=== PATIENT | male | born 1975 | race African-American/Black ===

== ENCOUNTER 2024-04-16 21:47 | Inpatient (IN) | payer OTHER ==
[2024-04-17 00:02] VITALS: BMI 30.5
[2024-04-17] MEDS: diphenhydrAMINE 50 MG/ML VIAL IVP SCH (00:19)
[2024-04-17] MEDS: HYDROcodone/Acetaminophen 10/325 mg Tablet PO SCH (00:19)
[2024-04-17] MEDS ORDERED: Albuterol 200 PUFF (6.7GM INHALER) INH PRN (00:35)
[2024-04-17] MEDS ORDERED: Ondansetron PF 4 MG/2 ML Vial IVP PRN (00:37)
[2024-04-17] MEDS ORDERED: Morphine 2 MG/ML VIAL SLOW IVP PRN (00:46)
[2024-04-17] MEDS: Lactated Ringer's 1,000 ML IV SCH (01:06)
[2024-04-17] MEDS: Morphine 4 MG/ML VIAL SLOW IVP PRN ×2 (01:22→14:55)
[2024-04-17] MEDS: Acetaminophen/Codeine 30-300mg Tablet PO PRN (02:57)
[2024-04-17 04:23] LABS: Hematocrit 17.8 % (42.0-52.0); Hemoglobin 6.2 g/dL (14.0-18.0); Mean Corpuscular HGB CONC 34.8 g/dL (32.0-36.0); Mean Corpuscular Hemoglobin 37.6 pg (27.0-31.0); Mean Corpuscular Volume 107.9 fL (78.0-98.0); Platelet Count 225 10x3/uL (130-400); RBC Distribution Width 28.6 % (11.5-14.5); Red Blood Cell (RBC) Count 1.65 mill/uL (4.70-6.10)
[2024-04-17 04:28] LABS: Anion Gap 11 mmol/L (10-20); BUN (Urea Nitrogen) 15 mg/dL (8.9-20.6); Calc. Creatinine Clearance 133 mL/min (70-130); Calcium 8.5 mg/dL (7.8-10.44); Carbon Dioxide 24 mmol/L (22-29); Chloride 104 mmol/L (98-107); Estimated GFR 82; Glucose 111 mg/dL (70-105); Potassium 3.9 mmol/L (3.5-5.1); Sodium 135 mmol/L (136-145)
[2024-04-17 05:08] LABS: Anisocytosis SLIGHT = 6-15 cells HPF (0-5); Band 1 % (5-11); Hypochromia SLIGHT = 6-15 cells HPF (0-5); Lymphocytes 23 % (21-51); Macrocytosis SLIGHT = 6-15 cells HPF (0-5); Monocytes 1 % (0-10); Neutrophil 75 % (42-75); Nucleated RBC (Manual Ct) 23 % (0); Platelet Adequacy Comment Platelets Normal; Polychromasia MODERATE = 3-4 cells HPF (0-2); Target Cells SLIGHT = 2-5 cells HPF (0-1)
[2024-04-17] MEDS: diphenhydrAMINE 25 MG CAP PO PRN (05:48)
[2024-04-17 07:55] LABS: Bacteria/HPF None Seen HPF (None Seen); Bilirubin Negative (Negative); Blood, Urine Negative (Negative); Clarity Clear (Clear); Glucose, Urine (Dipstick) Normal (Negative); Ketone, Urine Negative (Negative); Leukocyte Negative Leu/uL (Negative); Nitrite Negative (Negative); Protein, Urine (Dipstick) 10 mg/dL (Neg-Trace); RBC/HPF None Seen HPF (0-3); Specific Gravity, Urine 1.005 (1.002-1.036); Squamous Epithelial 0-3 HPF (0-3); Urobilinogen Normal mg/dL (Less than 2); WBC/HPF None Seen HPF (0-3); pH, Urine 6.5 (5.0-9.0)
[2024-04-17] MEDS: Lisinopril 10 MG TAB PO SCH (08:53)
[2024-04-17] MEDS: Loratadine 10 MG TAB PO SCH (08:53)
[2024-04-17] MEDS: Pantoprazole DR 40 MG TAB PO SCH (08:53)
[2024-04-17] MEDS: Amlodipine 10 MG TAB PO SCH (08:54)
[2024-04-17] MEDS: Morphine ER 15 MG TAB PO SCH (08:54)
[2024-04-17] MEDS: Allopurinol 300 MG TAB PO SCH (08:54)
[2024-04-17] MEDS: Lactulose 20 GM (30 mL) UDCUP PO SCH (08:56)
[2024-04-17 10:34] LABS: Hemoglobin 7.5 g/dL (14.0-18.0)
[2024-04-17] MEDS: Hydroxyurea 500 MG CAP PO SCH (10:38)
[2024-04-17] MEDS: Morphine 4 MG/ML VIAL SLOW IVP SCH (11:34)
[2024-04-17] MEDS: Terazosin HCl 5 MG CAP PO SCH (20:46)
[2024-04-17] MEDS: Venlafaxine HCl XR 150 MG CAP PO SCH (20:46)
[2024-04-17] MEDS: Atorvastatin Calcium 40 MG TAB PO SCH (20:47)
[2024-04-18 04:11] LABS: Hematocrit 20.7 % (42.0-52.0); Hemoglobin 7.2 g/dL (14.0-18.0); Mean Corpuscular HGB CONC 34.8 g/dL (32.0-36.0); Mean Corpuscular Hemoglobin 36.2 pg (27.0-31.0); Mean Platelet Volume 10.5 fL (7.4-10.4); Platelet Count 237 10x3/uL (130-400); RBC Distribution Width 27.5 % (11.5-14.5); Red Blood Cell (RBC) Count 1.99 mill/uL (4.70-6.10)
[2024-04-18 04:21] LABS: Anion Gap 8 mmol/L (10-20); BUN (Urea Nitrogen) 14 mg/dL (8.9-20.6); Calc. Creatinine Clearance 149 mL/min (70-130); Calcium 9.1 mg/dL (7.8-10.44); Carbon Dioxide 30 mmol/L (22-29); Chloride 102 mmol/L (98-107); Estimated GFR 94; Glucose 86 mg/dL (70-105); Potassium 3.9 mmol/L (3.5-5.1); Sodium 136 mmol/L (136-145)
[2024-04-18 04:37] LABS: Anisocytosis SLIGHT = 6-15 cells HPF (0-5); Elliptocytes SLIGHT = 2-5 cells HPF (0-1); Hypochromia SLIGHT = 6-15 cells HPF (0-5); Large Platelets 48.5 % (0-5); Lymphocytes 48 % (21-51); Macrocytosis SLIGHT = 6-15 cells HPF (0-5); Monocytes 4 % (0-10); Neutrophil 49 % (42-75); Nucleated RBC (Manual Ct) 57 % (0); Platelet Adequacy Comment Platelets Normal; Polychromasia SLIGHT = 2-3 cells HPF (0-2); Target Cells SLIGHT = 2-5 cells HPF (0-1)
[2024-04-18] MEDS: Morphine ER 15 MG TAB PO SCH (20:02)
[2024-04-18] MEDS: diphenhydrAMINE 50 MG/ML VIAL IVP PRN (22:15)
[2024-04-19] MEDS: Acetaminophen 325 MG TAB PO PRN (04:27)
[2024-04-19 08:48] LABS: RBC Distribution Width 27.9 % (11.5-14.5)
[2024-04-19 08:48] LABS: Anion Gap 16 mmol/L (10-20); BUN (Urea Nitrogen) 14 mg/dL (8.9-20.6); Calc. Creatinine Clearance 163 mL/min (70-130); Calcium 8.9 mg/dL (7.8-10.44); Carbon Dioxide 24 mmol/L (22-29); Chloride 105 mmol/L (98-107); Estimated GFR 105; Glucose 112 mg/dL (70-105); Potassium 3.8 mmol/L (3.5-5.1); Sodium 141 mmol/L (136-145)
[2024-04-19 09:40] LABS: Anisocytosis MARKED = >30 cells HPF (0-5); Band 1 % (5-11); Eosinophils 1 % (0-10); Giant Platelets 2.5 % (0-5); Howell Jolly Bodies SLIGHT = 1-2 cells HPF (None Seen); Large Platelets 54.2 % (0-5); Lymphocytes 48 % (21-51); Monocytes 3 % (0-10); Neutrophil 43 % (42-75); Nucleated RBC (Manual Ct) 70 % (0); Platelet Adequacy Comment Platelets Normal; Polychromasia MARKED = >4 cells HPF (0-2); Smudge Cells 11.9 %; Target Cells SLIGHT = 2-5 cells HPF (0-1)
[2024-04-19 09:49] LABS: Hematocrit 24.8 % (42.0-52.0); Hemoglobin 9.1 g/dL (14.0-18.0); Mean Corpuscular HGB CONC 36.7 g/dL (32.0-36.0); Mean Corpuscular Hemoglobin 35.8 pg (27.0-31.0); Mean Corpuscular Volume 97.6 fL (78.0-98.0); Mean Platelet Volume 11.6 fL (7.4-10.4); Platelet Count 178 10x3/uL (130-400); Red Blood Cell (RBC) Count 2.54 mill/uL (4.70-6.10)
[2024-04-20 06:22] LABS: Anion Gap 10 mmol/L (10-20); BUN (Urea Nitrogen) 15 mg/dL (8.9-20.6); Calc. Creatinine Clearance 150 mL/min (70-130); Calcium 9.5 mg/dL (7.8-10.44); Carbon Dioxide 28 mmol/L (22-29); Chloride 104 mmol/L (98-107); Estimated GFR 95; Glucose 92 mg/dL (70-105); Potassium 4.2 mmol/L (3.5-5.1); Sodium 138 mmol/L (136-145)
[2024-04-20 06:44] LABS: Hematocrit 26.9 % (42.0-52.0); Hemoglobin 9.2 g/dL (14.0-18.0); Mean Corpuscular HGB CONC 34.2 g/dL (32.0-36.0); Mean Corpuscular Hemoglobin 35.9 pg (27.0-31.0); Mean Corpuscular Volume 105.1 fL (78.0-98.0); Mean Platelet Volume 10.7 fL (7.4-10.4); Platelet Count 246 10x3/uL (130-400); RBC Distribution Width 27.7 % (11.5-14.5); Red Blood Cell (RBC) Count 2.56 mill/uL (4.70-6.10)
[2024-04-20 08:04] LABS: Anisocytosis MODERATE=16-30 cells HPF (0-5); Giant Platelets 4.9 % (0-5); Howell Jolly Bodies SLIGHT = 1-2 cells HPF (None Seen); Hypersegmented Neutrophil SLIGHT (None Seen); Large Platelets 8.9 % (0-5); Lymphocytes 40 % (21-51); Macrocytosis SLIGHT = 6-15 cells HPF (0-5); Monocytes 1 % (0-10); Neutrophil 55 % (42-75); Nucleated RBC (Manual Ct) 55 % (0); Platelet Adequacy Comment Platelets Normal; Polychromasia SLIGHT = 2-3 cells HPF (0-2); Schistocytes SLIGHT = 2-5 cells HPF (0-1); Target Cells SLIGHT = 2-5 cells HPF (0-1)
[2024-04-20 16:34] VITALS: BP 136/75; TEMP 98.4
== END 2024-04-20 19:24 | DRG 812 ==
LOC: T4-B 23:40 → OBSVTOIN 04-17 00:37 → EEVIPCON 04-17 00:37
PROVIDERS: ADMIT Student in an Organized Health Care Education/Training Program; ATTEND Internal Medicine
PROC: 30233N1 Transfusion of Nonautologous Red Blood Cells into Peripheral Vein, Percutaneous Approach (ICD-10-PCS; principal; 2024-04-17)
DX: D57.00 Hb-SS disease with crisis, unspecified (principal); J45.909 Unspecified asthma, uncomplicated; E66.01 Morbid (severe) obesity due to excess calories; Z88.8 Allergy status to other drugs, medicaments and biological substances; Z79.899 Other long term (current) drug therapy; Z68.30 Body mass index [BMI] 30.0-30.9, adult; I12.9 Hypertensive chronic kidney disease with stage 1 through stage 4 chronic kidney disease, or unspecified chronic kidney disease; N18.9 Chronic kidney disease, unspecified; M10.9 Gout, unspecified
CPT/HCPCS: 36415; 36416; 36430; 71046; 80048; 80053; 81001; 85025; 85046; 85060; 86850; 86900; 86901; 94760; 96374; 96375; 96376; J1170; J1200; J1642; J2270; J7120; P9016

== ENCOUNTER 2024-08-23 18:37 | Inpatient (IN) | payer OTHER ==
[2024-08-23 20:44] VITALS: BMI 29.7
[2024-08-23] MEDS ORDERED: Sodium Chloride 0.9% 1,000 ML IV SCH ×2 (21:00)
[2024-08-23] MEDS: Lactated Ringer's 1,000 ML IV SCH ×2 (21:11→21:54)
[2024-08-23] MEDS ORDERED: Morphine 2 MG/ML VIAL SLOW IVP PRN (21:32)
[2024-08-23] MEDS ORDERED: Morphine 4 MG/ML VIAL SLOW IVP PRN (21:32)
[2024-08-23] MEDS ORDERED: Ipratropium/Albuterol 3 ML NEB NEB PRN (21:33)
[2024-08-23] MEDS ORDERED: Ondansetron PF 4 MG/2 ML Vial IVP PRN (21:36)
[2024-08-23] MEDS: Morphine 2 MG/ML VIAL SLOW IVP PRN (21:50)
[2024-08-23] MEDS: diphenhydrAMINE 25 MG CAP PO SCH (21:50)
[2024-08-24] MEDS: Morphine 4 MG/ML VIAL SLOW IVP PRN (00:39)
[2024-08-24 04:32] LABS: Hematocrit 27.7 % (42.0-52.0); Hemoglobin 10.2 g/dL (14.0-18.0); Mean Corpuscular HGB CONC 36.8 g/dL (32.0-36.0); Mean Corpuscular Volume 111.2 fL (78.0-98.0); Mean Platelet Volume 10.8 fL (7.4-10.4); Platelet Count 271 10x3/uL (130-400); RBC Distribution Width 18.4 % (11.5-14.5); Red Blood Cell (RBC) Count 2.49 mill/uL (4.70-6.10)
[2024-08-24 04:39] LABS: Anion Gap 10 mmol/L (10-20); BUN (Urea Nitrogen) 15 mg/dL (8.9-20.6); Calc. Creatinine Clearance 128 mL/min (70-130); Calcium 8.7 mg/dL (7.8-10.44); Carbon Dioxide 26 mmol/L (22-29); Chloride 107 mmol/L (98-107); Estimated GFR 82; Glucose 92 mg/dL (70-105); Potassium 4.4 mmol/L (3.5-5.1); Sodium 139 mmol/L (136-145)
[2024-08-24 05:52] LABS: Anisocytosis MODERATE=16-30 cells HPF (0-5); Band 3 % (5-11); Eosinophils 11 % (0-10); Large Platelets 24.3 % (0-5); Lymphocytes 35 % (21-51); Macrocytosis SLIGHT = 6-15 cells HPF (0-5); Monocytes 5 % (0-10); Neutrophil 46 % (42-75); Nucleated RBC (Manual Ct) 22 % (0); Ovalocytes SLIGHT = 2-5 cells HPF (0-1); Platelet Adequacy Comment Platelets Normal; Polychromasia SLIGHT = 2-3 cells HPF (0-2); Smudge Cells 13.5 %; Target Cells SLIGHT = 2-5 cells HPF (0-1)
[2024-08-24] MEDS: Hydroxyurea 500 MG CAP PO SCH (08:15)
[2024-08-24] MEDS: Amlodipine 10 MG TAB PO SCH (08:15)
[2024-08-24] MEDS: Allopurinol 300 MG TAB PO SCH (08:15)
[2024-08-24] MEDS: Morphine ER 15 MG TAB PO SCH ×2 (11:38→20:20)
[2024-08-24 11:46] VITALS: BMI 29.7
[2024-08-24] MEDS: HYDROmorphone 0.5 MG/0.5 ML SYRINGE SLOW IVP SCH ×2 (14:21→17:29)
[2024-08-24] MEDS: Rivaroxaban 10 MG TAB PO SCH (20:20)
[2024-08-24] MEDS: Venlafaxine HCl XR 150 MG CAP PO SCH (20:20)
[2024-08-24] MEDS: Terazosin HCl 1 MG CAP PO SCH (20:20)
[2024-08-24] MEDS: Atorvastatin Calcium 40 MG TAB PO SCH (20:20)
[2024-08-24] MEDS ORDERED: Morphine ER 15 MG TAB PO SCH (21:00)
[2024-08-24] MEDS: HYDROmorphone 0.5 MG/0.5 ML SYRINGE SLOW IVP PRN (22:39)
[2024-08-25] MEDS: diphenhydrAMINE 25 MG CAP PO SCH (01:40)
[2024-08-25 04:46] LABS: Hematocrit 26.7 % (42.0-52.0); Hemoglobin 9.7 g/dL (14.0-18.0); Mean Corpuscular HGB CONC 36.3 g/dL (32.0-36.0); Mean Corpuscular Hemoglobin 42.4 pg (27.0-31.0); Mean Corpuscular Volume 116.6 fL (78.0-98.0); Mean Platelet Volume 10.4 fL (7.4-10.4); Platelet Count 282 10x3/uL (130-400); RBC Distribution Width 18.5 % (11.5-14.5); Red Blood Cell (RBC) Count 2.29 mill/uL (4.70-6.10)
[2024-08-25 05:02] LABS: Anion Gap 10 mmol/L (10-20); BUN (Urea Nitrogen) 11 mg/dL (8.9-20.6); Calc. Creatinine Clearance 152 mL/min (70-130); Calcium 8.6 mg/dL (7.8-10.44); Carbon Dioxide 30 mmol/L (22-29); Chloride 103 mmol/L (98-107); Estimated GFR 101; Glucose 121 mg/dL (70-105); Potassium 3.3 mmol/L (3.5-5.1); Sodium 140 mmol/L (136-145)
[2024-08-25 05:23] LABS: Anisocytosis SLIGHT = 6-15 cells HPF (0-5); Eosinophils 3 % (0-10); Hemoglobin C Crystals SLIGHT HPF; Lymphocytes 50 % (21-51); Macrocytosis MODERATE=16-30 cells HPF (0-5); Monocytes 3 % (0-10); Neutrophil 44 % (42-75); Nucleated RBC (Manual Ct) 26 % (0); Platelet Adequacy Comment Platelets Normal; Polychromasia SLIGHT = 2-3 cells HPF (0-2); Schistocytes SLIGHT = 2-5 cells HPF (0-1); Target Cells SLIGHT = 2-5 cells HPF (0-1)
[2024-08-25] MEDS: Potassium Chloride 20 MEQ TAB PO SCH (08:07)
[2024-08-25] MEDS ORDERED: Morphine 4 MG/ML VIAL SLOW IVP PRN (12:14)
[2024-08-25] MEDS ORDERED: Naloxone HCl 0.4 mg/ml Vial IV PRN (12:51)
[2024-08-25] MEDS ORDERED: diphenhydrAMINE 50 MG/ML VIAL IVP PRN (12:51)
[2024-08-25] MEDS ORDERED: Ondansetron PF 4 MG/2 ML Vial IVP PRN (12:51)
[2024-08-25] MEDS ORDERED: diphenhydrAMINE 50 MG/ML VIAL IM PRN (12:51)
[2024-08-25] MEDS ORDERED: Promethazine HCl 25 MG/ML VIAL IM PRN (12:51)
[2024-08-25] MEDS ORDERED: PCA Communication Order-Pharmacy FS SCH (13:00)
[2024-08-25] MEDS: HYDROmorphone/PF 10 MG in Sodium Chloride 0.9% 99 ML IV PRN (14:56)
[2024-08-25] MEDS: diphenhydrAMINE 25 MG CAP PO PRN (17:30)
[2024-08-26 05:05] LABS: Hematocrit 29.1 % (42.0-52.0); Hemoglobin 10.7 g/dL (14.0-18.0); Mean Corpuscular HGB CONC 36.8 g/dL (32.0-36.0); Mean Corpuscular Volume 111.5 fL (78.0-98.0); Mean Platelet Volume 10.9 fL (7.4-10.4); Platelet Count 342 10x3/uL (130-400); RBC Distribution Width 18.4 % (11.5-14.5); Red Blood Cell (RBC) Count 2.61 mill/uL (4.70-6.10)
[2024-08-26 05:28] LABS: Anion Gap 9 mmol/L (10-20); BUN (Urea Nitrogen) 13 mg/dL (8.9-20.6); Calc. Creatinine Clearance 135 mL/min (70-130); Carbon Dioxide 31 mmol/L (22-29); Chloride 101 mmol/L (98-107); Estimated GFR 87; Glucose 95 mg/dL (70-105); Potassium 3.8 mmol/L (3.5-5.1); Sodium 137 mmol/L (136-145)
[2024-08-26 05:37] LABS: Anisocytosis SLIGHT = 6-15 cells HPF (0-5); Eosinophils 4 % (0-10); Howell Jolly Bodies SLIGHT = 1-2 cells HPF (None Seen); Hypochromia SLIGHT = 6-15 cells HPF (0-5); Lymphocytes 39 % (21-51); Macrocytosis MODERATE=16-30 cells HPF (0-5); Monocytes 4 % (0-10); Neutrophil 52 % (42-75); Nucleated RBC (Manual Ct) 27 % (0); Ovalocytes SLIGHT = 2-5 cells HPF (0-1); Platelet Adequacy Comment Platelets Normal; Polychromasia MODERATE = 3-4 cells HPF (0-2); Target Cells MODERATE= 6-15 cells HPF (0-1)
[2024-08-26] MEDS: Ondansetron ODT 4 MG TAB PO PRN (10:26)
[2024-08-26] MEDS ORDERED: Bisacodyl 10 MG SUPP PR PRN (13:40)
[2024-08-26] MEDS: Lactulose 20 GM (30 mL) UDCUP PO SCH (20:48)
[2024-08-27 05:20] LABS: Hematocrit 29.1 % (42.0-52.0); Hemoglobin 10.5 g/dL (14.0-18.0); Mean Corpuscular HGB CONC 36.1 g/dL (32.0-36.0); Mean Corpuscular Hemoglobin 41.8 pg (27.0-31.0); Mean Corpuscular Volume 115.9 fL (78.0-98.0); Mean Platelet Volume 10.1 fL (7.4-10.4); Platelet Count 331 10x3/uL (130-400); RBC Distribution Width 18.2 % (11.5-14.5); Red Blood Cell (RBC) Count 2.51 mill/uL (4.70-6.10)
[2024-08-27 05:48] LABS: Eosinophils 2 % (0-10); Hemoglobin C Crystals SLIGHT HPF; Howell Jolly Bodies SLIGHT = 1-2 cells HPF (None Seen); Large Platelets 7.1 % (0-5); Lymphocytes 20 % (21-51); Monocytes 4 % (0-10); Neutrophil 72 % (42-75); Nucleated RBC (Manual Ct) 18 % (0); Platelet Adequacy Comment Platelets Normal; Polychromasia SLIGHT = 2-3 cells HPF (0-2); Reactive Lymphocytes 1 % (0-10); Smudge Cells 13.1 %; Target Cells SLIGHT = 2-5 cells HPF (0-1)
[2024-08-27] MEDS: Folic Acid 1 MG TAB PO SCH (09:36)
[2024-08-27] MEDS: Pantoprazole DR 40 MG TAB PO SCH (09:36)
[2024-08-27] MEDS: Acetaminophen 325 MG TAB PO PRN (17:55)
[2024-08-27] MEDS: Morphine ER 15 MG TAB PO SCH (20:44)
[2024-08-28] MEDS: HYDROmorphone 0.5 MG/0.5 ML SYRINGE SLOW IVP SCH (05:02)
[2024-08-28 05:33] LABS: Hematocrit 29.2 % (42.0-52.0); Hemoglobin 10.9 g/dL (14.0-18.0); Mean Corpuscular HGB CONC 37.3 g/dL (32.0-36.0); Mean Corpuscular Hemoglobin 41.6 pg (27.0-31.0); Mean Corpuscular Volume 111.5 fL (78.0-98.0); Mean Platelet Volume 11.6 fL (7.4-10.4); Platelet Count 392 10x3/uL (130-400); RBC Distribution Width 18.8 % (11.5-14.5); Red Blood Cell (RBC) Count 2.62 mill/uL (4.70-6.10)
[2024-08-28 07:50] LABS: Eosinophils 3 % (0-10); Large Platelets 14.4 % (0-5); Lymphocytes 30 % (21-51); Macrocytosis SLIGHT = 6-15 cells HPF (0-5); Monocytes 2 % (0-10); Neutrophil 64 % (42-75); Nucleated RBC (Manual Ct) 13 % (0); Platelet Adequacy Comment Platelets Normal; Polychromasia MODERATE = 3-4 cells HPF (0-2); Reactive Lymphocytes 1 % (0-10); Schistocytes SLIGHT = 2-5 cells HPF (0-1); Target Cells MODERATE= 6-15 cells HPF (0-1)
[2024-08-28] MEDS: Morphine 4 MG/ML VIAL SLOW IVP SCH (11:05)
[2024-08-28] MEDS: Morphine IR 10 MG/5 ML UDCUP PO PRN (14:43)
[2024-08-29 00:11] VITALS: BP 140/91; TEMP 98.6
== END 2024-08-29 00:16 | DRG 812 ==
LOC: OBS 20:25 → EEVIPCON 20:25
PROVIDERS: ADMIT Physician Assistant; ATTEND Internal Medicine
DX: D57.00 Hb-SS disease with crisis, unspecified (principal); J96.11 Chronic respiratory failure with hypoxia; J45.909 Unspecified asthma, uncomplicated; I10 Essential (primary) hypertension; E78.5 Hyperlipidemia, unspecified; M10.9 Gout, unspecified; K59.00 Constipation, unspecified; Z88.8 Allergy status to other drugs, medicaments and biological substances; Z91.048 Other nonmedicinal substance allergy status; Z79.899 Other long term (current) drug therapy
CPT/HCPCS: 36415; 71045; 80048; 80053; 84484; 85025; 85046; 87040; 93005; 96365; 96375; 96376; J0696; J1170; J2272; J2405; Q0162

== ENCOUNTER 2025-08-17 10:50 | Emergency (ER) | payer OTHER ==
[2025-08-17] MEDS ORDERED: Iopamidol-370 76% 500 ML MDV (1 ML CHARGE) ONE (11:33)
[2025-08-17] MEDS ORDERED: HYDROmorphone 0.5 MG/0.5 ML SYRINGE ONE ×3 (11:41→15:21)
[2025-08-17 12:05] LABS: Hematocrit 32.1 % (42.0-52.0); Hemoglobin 11.1 g/dL (14.0-18.0); Mean Corpuscular Hemoglobin 39.1 pg (27.0-31.0); Mean Corpuscular Volume 113.0 fL (78.0-98.0); Platelet Count 331 10x3/uL (130-400); Red Blood Cell (RBC) Count 2.84 mill/uL (4.70-6.10); White Blood Cell (WBC) Count 6.40 10x3/uL (4.8-10.8)
[2025-08-17 12:14] LABS: ALT (SGPT) 19 U/L (Less than 45); AST (SGOT) 30 U/L (11-34); Albumin 3.6 g/dL (3.1-4.5); Alkaline Phosphatase 129 U/L (40-110); Anion Gap 13 mmol/L (10-20); BUN (Urea Nitrogen) 13 mg/dL (8.9-20.6); Bilirubin, Total 0.8 mg/dL (0.3-1.2); Calc. Creatinine Clearance 0 mL/min (70-130); Calcium 9.5 mg/dL (7.8-10.44); Carbon Dioxide 26 mmol/L (22-29); Chloride 106 mmol/L (98-107); Globulin 4.1 g/dL (2.4-3.5); Glucose 110 mg/dL (70-105); Lipase 14 U/L (8-78); Potassium 3.6 mmol/L (3.5-5.1); Sodium 141 mmol/L (136-145)
[2025-08-17 12:15] LABS: #Basophils Less than 0.03 10x3/uL (0.0-0.2); #Eosinophils 0.04 10x3/uL (0.0-0.7); #Monocytes 0.43 10x3/uL (0.11-0.59); #Neutrophils 4.18 10x3/uL (1.40-6.50); %Basophils 0.3 % (0.0-1.0); %Eosinophils 0.6 % (0.0-10.0); %Lymphocytes 26.6 % (21.0-51.0); %Monocytes 6.7 % (0.0-10.0); %Neutrophils 65.3 % (42.0-75.0)
[2025-08-17] MEDS ORDERED: Ondansetron PF 4 MG/2 ML Vial ONE (12:58)
[2025-08-17] MEDS ORDERED: diphenhydrAMINE 50 MG/ML VIAL ONE (12:58)
== END 2025-08-17 17:45 ==
LOC: ERS 10:50 → EEVIPCON 10:50 → ERS 17:45
DX: R07.9 Chest pain, unspecified (principal); I12.9 Hypertensive chronic kidney disease with stage 1 through stage 4 chronic kidney disease, or unspecified chronic kidney disease; N18.9 Chronic kidney disease, unspecified; Z79.899 Other long term (current) drug therapy
CPT/HCPCS: 36415; 71045; 71275; 80053; 83690; 83880; 84484; 85025; 85046; 93005; 96374; 96375; 96376; J1171; J1200; J1642; Q9967